=== PATIENT | female | born 1965 | race Caucasian/White ===

== ENCOUNTER 2018-02-14 19:05 | Emergency (ER) | payer SELFPAY ==
[2018-02-14 19:13] VITALS: BP 163/102
--- NOTE | 2018-02-14 19:33 | ED Physician Documentation ---
General Adult - HISTORIAN Historian: patient - HPI Stated Complaint: Foot lac Chief Complaint: General Adult Further Comments: yes (52 year old female patient presents with complaint of laceration to left 5th toe. Stepped on a broken dish.) - ROS CONST: no problems EYES/ENT: none CVS/RESP: none GI/: none MS/SKIN/LYMPH: none NEURO/PSYCH: denies: headache, fainting, dizziness, tingling, numbness, difficulty walking, difficulty with speech, anxiety, depression, other - PAST HX Past History: hypertension, other (cardiomyopathy) Other History: diabetes Type 2 Surgeries/Procedures: cholecystectomy, hysterectomy, other (appendectomy; hemorrhoidectomy) Immunizations: tetanus (>5 years) Allergies/Adverse Reactions: Allergies Allergy/AdvReac Type Severity Reaction Status Date / Time codeine Allergy Verified 02/14/18 19:13 gabapentin Allergy Verified 02/14/18 19:13 oxycodone [From OxyContin] Allergy Verified 02/14/18 19:13 Home Medications: Ambulatory Orders Medication Instructions Recorded Citalopram Hydrobromide 1 tab PO DAILY 02/14/18 [Citalopram HBr] DULoxetine HCL [Cymbalta] 1 tab PO BID 02/14/18 Hydroxyzine HCl [Atarax] 1 tab PO TID PRN 02/14/18 Lisinopril [Prinivil] 1 tab PO DAILY 02/14/18 Metoprolol Succinate [Toprol Xl] 1 tab PO DAILY 02/14/18 - SOCIAL HX Smoking History: cigarettes - FAMILY HX Family History: No - VITAL SIGNS Vital Signs: Vital Signs Temp Pulse Resp BP Pulse Ox 96.4 F L 91 H 17 163/102 98 02/14/18 19:09 02/14/18 19:09 02/14/18 19:09 02/14/18 19:09 02/14/18 19:09 - REVIEWED ASSESSMENTS Nursing Assessment Reviewed: Yes Vitals Reviewed: Yes Progress - Progress Progress: Wound cleaned by nursing. Steri strip applied Patient offered Tetanus shot - refused. Risk and benefits explained. General Adult Physical Exam - PHYSICAL EXAM GENERAL APPEARANCE: mild distress EENT: eye inspection normal RESPIRATORY: no resp distress SKIN: warm/dry, normal color, other (.5 cm abrasion to right lateral 5th toe) EXTREMITIES: non-tender, normal range of motion, no evidence of injury, no edema , J, [employer] NEURO: oriented X3 Discharge Clincal Impression: Abrasion of fifth toe, right Qualifiers: Encounter type: initial encounter Qualified Code(s): S90.414A - Abrasion, right lesser toe(s), initial encounter Condition: Stable Disposition: 01 HOME, SELF-CARE Decision to Admit: NO Decision Time: 19:33
== END 2018-02-14 19:31 | disposition home or self-care (01) ==
LOC: ED 19:05
DX: S90.414A Abrasion, right lesser toe(s), initial encounter (principal); X58.XXXA Exposure to other specified factors, initial encounter; Y92.9 Unspecified place or not applicable; Y93.9 Activity, unspecified; Y99.9 Unspecified external cause status
CPT/HCPCS: 99283

== ENCOUNTER 2018-03-19 20:32 | Emergency (ER) | payer SELFPAY ==
--- NOTE | 2018-03-19 20:54 | ED Physician Documentation ---
General Adult - HISTORIAN Historian: patient - HPI Stated Complaint: abd pain Chief Complaint: General Adult Onset: days ago (2 weeks) Timing: still present Severity: moderate Further Comments: yes (Pt is a 52 yo female with L-sided abd pain and bruising, and c/o n/v/diarrhea. No blood in diarrhea. Pt has had these sx off and on for weeks. 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.) - ROS CONST: no problems EYES/ENT: none CVS/RESP: none GI/: abdominal pain, vomiting, nausea, diarrhea MS/SKIN/LYMPH: other (ecchymosis L flank) - PAST HX Past History: other (anxiety, DM, HTN) Surgeries/Procedures: cholecystectomy, hysterectomy, other (Hernia, Tonsillectomy, ortho surg.) Allergies/Adverse Reactions: Allergies Allergy/AdvReac Type Severity Reaction Status Date / Time codeine Allergy Verified 03/19/18 20:57 gabapentin Allergy Verified 03/19/18 20:57 oxycodone [From OxyContin] Allergy Verified 03/19/18 20:57 Home Medications: Ambulatory Orders Medication Instructions Recorded Citalopram Hydrobromide 1 tab PO DAILY 02/14/18 [Citalopram HBr] DULoxetine HCL [Cymbalta] 1 tab PO BID 02/14/18 Hydroxyzine HCl [Atarax] 1 tab PO TID PRN 02/14/18 Lisinopril [Prinivil] 1 tab PO DAILY 02/14/18 Metoprolol Succinate [Toprol Xl] 1 tab PO DAILY 02/14/18 - SOCIAL HX Smoking History: non-smoker Alcohol Use: heavy (wine) - FAMILY HX Family History: No - VITAL SIGNS Vital Signs: Vital Signs Temp Pulse Resp BP Pulse Ox 163/102 02/14/18 19:31 - REVIEWED ASSESSMENTS Nursing Assessment Reviewed: Yes Vitals Reviewed: Yes Progress - Progress Progress: NS 1 L IVF Zofran [address] abd/pelvis: The lung bases are clear. The liver and spleen are normal. The gallbladder has been removed. Adrenal glands pancreas and mesentery are within normal limits. Minimal aortic calcification is present. There is a right extrarenal pelvis. The uterus has been removed. Numerous vascular calcifications are present in the pelvis. There sigmoid diverticulosis and left colon diverticulosis. A surgical clip is present anterior to the liver. The appendix is within normal limits. There is no inguinal mass. Minimal changes of lumbar spondylosis are present IMPRESSION: Cholecystectomy. Diverticulosis. Minimal vascular calcifications. Lumbar spondylosis. U/A - 1+ leukoesterase; trace blood. Rx Cipro 500 mg. Take one every 12 hrs for 5 days. General Adult Physical Exam - PHYSICAL EXAM GENERAL APPEARANCE: moderate distress EENT: pharynx normal NECK: normal inspection, supple RESPIRATORY: no resp distress, chest non-tender, breath sounds normal CVS: reg rate & rhythm, heart sounds normal ABDOMEN: soft, normal bowel sounds, tenderness (L flank, with ecchymosis, L flank) BACK: normal inspection, no CVA tenderness SKIN: warm/dry, other (ecchymosis L flank) EXTREMITIES: non-tender, normal range of motion, no evidence of injury, no edema NEURO: oriented X3, motor nml, sensation nml Discharge Clincal Impression: UTI, nausea/vomiting/diarrhea Referrals: Primary Doctor,No [Primary Care Provider] - Condition: Stable Disposition: 01 HOME, SELF-CARE Decision to Admit: NO Decision Time: 00:08
[2018-03-19] MEDS ORDERED: ONDANSETRON HCL/PF 4 MG/ 2ML VIAL IVP ONE (20:55)
[2018-03-19] MEDS ORDERED: 0.9 % SODIUM CHLORIDE 1,000 ML IV SCH (21:00)
[2018-03-19] MEDS ORDERED: 0.9 % SODIUM CHLORIDE 1,000 ML IV ONE (22:04)
[2018-03-19 22:10] LABS: BASOPHILS % 0.8 (0.0-1.5); EOSINOPHILS % 1.7 % (0.0-6.8); MEAN CORPUSCULAR HEMOGLOBIN 31.4 pg (28.0-34.0); MONOCYTES % 6.1 % (0.0-11.0); NEUTROPHILS # 6.5 # k/uL (1.4-7.7)
[2018-03-19 22:21] LABS: eGFR (African) > 60; eGFR (Non-African) > 60
[2018-03-20] MEDS ORDERED: CIPROFLOXACIN HCL 500 MG TABLET PO ONE (00:06)
[2018-03-20 00:28] VITALS: BP 129/72
--- NOTE | 2018-03-20 05:57 | Diagnostic Imaging Report ---
IVETTE CARNES [facility] [address] [facility] [address] [place], [place]. [address] Report Submission Date: Mar 19, 2018 11:56:57 PM CDT Patient Study Name: JACKELINE REYES Date: Mar 19, 2018 11:36:50 PM CDT Modality Type: CT\SR Gender: F Description: CT ABD PELVIS W/O CO : 63 Institution: [facility] Physician: IVETTE CARNES CT abdomen and pelvis without contrast Date of study: March 19, 2018 CLINICAL HISTORY: LEFT SIDED ABD PAIN, VOMITING (Hx) / ITS.REASON abd pain Note time : 03/20/2018 12:48:05 AM User : Justin Bertrand ABD PAIN (DICOM Hx) TECHNIQUE: 5 mm contiguous axial images of the abdomen and pelvis non contrast. FINDINGS: The lung bases are clear. The liver and spleen are normal. The gallbladder has been removed. Adrenal glands pancreas and mesentery are within normal limits. Minimal aortic calcification is present. There is a right extrarenal pelvis. The uterus has been removed. Numerous vascular calcifications are present in the pelvis. There sigmoid diverticulosis and left colon diverticulosis. A surgical clip is present anterior to the liver. The appendix is within normal limits. There is no inguinal mass. Minimal changes of lumbar spondylosis are present IMPRESSION: Cholecystectomy. Diverticulosis Minimal vascular calcifications Lumbar spondylosis Electronically signed on Mar 19, 2018 11:56:57 PM CDT by: Dalton Mukherjee [facility]ITALEn[facility]
[2018-03-20 06:36] LABS: APPEARANCE,URINE CLOUDY (CLEAR); COLOR,URINE YELLOW (YELLOW); OCCULT BLOOD,URINE TRACE-INTACT (NEGATIVE); UROBILINOGEN URINE 0.2 Eu (0.2-1.0)
== END 2018-03-20 00:20 | disposition home or self-care (01) ==
LOC: ED 20:32
DX: N39.0 Urinary tract infection, site not specified (principal); R11.2 Nausea with vomiting, unspecified; R19.7 Diarrhea, unspecified
CPT/HCPCS: 74176; 80053; 81002; 83690; 85025; 87086; J2405; J7030; 96365; 96375; 99284; S1016

== ENCOUNTER 2018-05-12 15:37 | Emergency (ER) | payer OTHER ==
[2018-05-12 16:17] VITALS: BP 133/80
--- NOTE | 2018-05-12 16:44 | Diagnostic Imaging Report ---
DELORIS MARTINEZ [facility] [address] [facility] [address] [address] Report Submission Date: May 12, 2018 4:42:47 PM CDT Patient Study Name: JACKELINE REYES Date: May 12, 2018 4:18:08 PM CDT Modality Type: DX Gender: F Description: LOWER EXTREMITY : 63 Institution: [facility] Physician: DELORIS MARTINEZ Right 1st toe, 3 views History: Injury Findings: No fracture, dislocation or abnormal bone production or destruction is identified. Impression: Normal. Electronically signed on May 12, 2018 4:42:47 PM CDT by: Angel JESUS
--- NOTE | 2018-05-12 16:51 | ED Physician Documentation ---
Lower Extremity Injury - HISTORIAN Historian: patient - HPI Stated Complaint: Right foot injury Chief Complaint: Foot Injury Additional Information: Dropped heavy wooden mirror on toe at 1400. Stings and hurts up her leg almost to knee. No treatment attempted. - ROS CONST: no problems - PAST HX Past History: cardiac (enlarged heart, no symptoms) Allergies/Adverse Reactions: Allergies Allergy/AdvReac Type Severity Reaction Status Date / Time codeine Allergy Verified 05/12/18 16:12 gabapentin Allergy Verified 05/12/18 16:12 oxycodone [From OxyContin] Allergy Verified 05/12/18 16:12 Home Medications: Ambulatory Orders Medication Instructions Recorded DULoxetine HCL [Cymbalta] 1 tab PO BID 02/14/18 Hydroxyzine HCl [Atarax] 1 tab PO TID PRN 02/14/18 Lisinopril [Prinivil] 1 tab PO DAILY 02/14/18 Metoprolol Succinate [Toprol Xl] 1 tab PO DAILY 02/14/18 - SOCIAL HX Smoking History: non-smoker - FAMILY HX Family History: no significant history - VITAL SIGNS Vital Signs: Vital Signs Temp Pulse Resp BP Pulse Ox 98.2 F 74 19 133/80 97 05/12/18 15:40 05/12/18 15:40 05/12/18 15:40 05/12/18 15:40 05/12/18 15:40 - REVIEWED ASSESSMENTS Nursing Assessment Reviewed: Yes Vitals Reviewed: Yes Progress - Progress Progress: [place]. [address] Report Submission Date: May 12, 2018 4:42:47 PM CDT Patient Study Name: JACKELINE REYES Date: May 12, 2018 4:18:08 PM CDT Modality Type: DX Gender: F Description: LOWER EXTREMITY : 63 Institution: [facility] Physician: DELORIS MARTINEZ - ER Right 1st toe, 3 views History: Injury Findings: No fracture, dislocation or abnormal bone production or destruction is identified. Impression: Normal. Electronically signed on May 12, 2018 4:42:47 PM CDT by: Angel Ugarte ED Results Lab/Radiology - Orders Orders: ED Orders Category Date Time Status Vijay Tape Toes 1T Care 05/12/18 16:51 Active TOES 2 VIEWS OR MORE [RAD] Stat Exams 05/12/18 Completed Lower Extremities Injury Phy - Physical Exam General Appearance: alert, mild distress Hips: bilateral hip: no evidence of injury Legs: bilateral: no evidence of injury Knees: bilateral: no evidence of injury Ankle: bilateral: normal inspection, no evidence of injury Foot: bilateral foot: normal inspection, no evidence of injury (except L first toe with light blue ecchymosis 1/4 the area of the nail) Gait: antalgic gait Neuro/Vascular/Tendon: no vascular compromise (DP and PT 2+ jaden), motor nml, sensation nml Head/ENT: nml inspection Neck/Back: nml inspection Resp/CVS: no resp. distress Discharge Clincal Impression: Contusion Qualifiers: Encounter type: initial encounter Contusion area: toe Toe: great toe Damage to nail status: without damage Referrals: Primary Doctor,No [Primary Care Provider] - 2 Days Condition: Good Disposition: 01 HOME, SELF-CARE Decision to Admit: NO Decision Time: 16:58
== END 2018-05-12 17:00 | disposition home or self-care (01) ==
LOC: ED 15:37
DX: S90.111A Contusion of right great toe without damage to nail, initial encounter (principal); W23.1XXA Caught, crushed, jammed, or pinched between stationary objects, initial encounter; Y92.9 Unspecified place or not applicable; Y93.9 Activity, unspecified; Y99.9 Unspecified external cause status
CPT/HCPCS: 73660; 99282

== ENCOUNTER 2018-09-11 11:00 | Emergency (ER) | payer OTHER ==
[2018-09-11] MEDS ORDERED: ONDANSETRON HCL/PF 4 MG/ 2ML VIAL IVP ONE (11:16)
[2018-09-11 11:23] VITALS: BP 99/85
--- NOTE | 2018-09-11 11:26 | ED Physician Documentation ---
Nausea/Vomiting/Diarrhea - HISTORIAN Historian: patient - HPI Stated Complaint: Nausea, Emesis, Diarrhea Chief Complaint: Nausea,Vomiting,Diarrhea Additional Information: Patient presents to ED with a 3 day history of nausea/vomiting/diarrhea. She states she has been throwing up every 2 minutes and having watery diarrhea every 10 minutes for the past 3 days. She had a morphine pain injection in her back yesterday by pain management and that seemed make the nausea/vomiting worse. She denies fever, chills or abdominal pain. Onset: hours, days ago (3) Duration: constant Timing: gradual onset Context: denies: out of country travel, bad food - Associated Symptoms Vomiting: frequent Diarrhea: copious, watery Abdominal Pain: none - ROS CONST: none CVS/RESP: denies: chest pain, shortness of breath GI/: none EYES/ENT: none MS/SKIN/LYMPH: denies: leg swelling, ankle swelling NEURO/PSYCH: denies: headache - PAST HX Past History: none Other History: CHF Allergies/Adverse Reactions: Allergies Allergy/AdvReac Type Severity Reaction Status Date / Time codeine Allergy Verified 09/11/18 11:18 gabapentin Allergy Verified 09/11/18 11:18 oxycodone [From OxyContin] Allergy Verified 09/11/18 11:18 Home Medications: Ambulatory Orders Medication Instructions Recorded Lisinopril [Prinivil] 1 tab PO DAILY 02/14/18 Metoprolol Succinate [Toprol Xl] 1 tab PO DAILY 02/14/18 Loperamide HCl [Imodium A-D] 2 mg PO QID #30 capsule 09/11/18 Ondansetron HCl Rapdis [Zofran Odt] 4 mg PO Q8 PRN #20 tab 09/11/18 - SOCIAL HX Smoking History: non-smoker Alcohol Use: none Drug Use: none - FAMILY HX Family History: none - VITAL SIGNS Vital Signs: Vital Signs Temp Pulse Resp BP Pulse Ox 98.0 F 75 15 99/85 98 09/11/18 11:10 09/11/18 11:10 09/11/18 11:10 09/11/18 11:10 09/11/18 11:10 - REVIEWED ASSESSMENTS Nursing Assessment Reviewed: Yes Vitals Reviewed: Yes ED Results Lab/Radiology - Lab Results Lab Results: Lab Results 09/11/18 09/11/18 09/11/18 Unknown Unknown Unknown WBC 11.50 K/ul K/ul (4.00-12.00) RBC 4.56 M/ul M/ul (3.90-5.20) Hgb 13.6 g/dL g/dL (12.0-16.0) Hct 41.1 % % (34.5-46.5) MCV 90.0 fl fl (80.0-100.0) MCH 29.9 pg pg (28.0-34.0) MCHC 33.2 g/dL g/dL (30.0-36.0) RDW 12.8 % % (11.3-14.3) Plt Count 296 K/mm3 K/mm3 (130-400) Neut % (Auto) 67.0 % % (39.0-79.0) Lymph % (Auto) 23.0 % % (16.0-50.0) [place] % (Auto) 8.3 % % (0.0-11.0) Eos % (Auto) 1.2 % % (0.0-6.8) Baso % (Auto) 0.5 (0.0-1.5) Neut # (Auto) 7.7 # k/uL # k/uL (1.4-7.7) Lymph # (Auto) 2.7 # k/uL # k/uL (0.6-4.0) [place] # (Auto) 1.0 # k/uL H # k/uL (0.0-0.9) Eos # (Auto) 0.1 # k/uL # k/uL (0.0-0.6) Baso # (Auto) 0.1 # k/uL # k/uL (0.0-0.5) Sodium 141 mmol/L mmol/L (136-145) Potassium 3.3 mmol/L L mmol/L (3.5-5.1) Chloride 102 mmol/L mmol/L (98-107) Carbon Dioxide 30 mmol/L mmol/L (22-30) BUN 23 mg/dL H mg/dL (7-17) Creatinine 1.30 mg/dL H mg/dL (0.52-1.04) Estimated Creat Clear 88 Est GFR ( Amer) > 60 (60 - ) Est GFR (Non-Af Amer) > 60 (60 - ) Glucose 108 mg/dL H mg/dL (74-106) Calcium 9.8 mg/dL mg/dL (8.4-10.2) Total Bilirubin 0.4 mg/dL mg/dL (0.2-1.3) AST 45 U/L U/L (15-46) ALT 27 U/L U/L (13-69) Alkaline Phosphatase 80 U/L U/L (38-126) NT-Pro-B Natriuret Pep 441.6 pg/mL H pg/mL (15.0-125.0) Total Protein 7.2 g/dL g/dL (6.3-8.2) Albumin 4.5 g/dL g/dL (3.5-5.0) - Orders Orders: ED Orders Category Date Time Status Place IV Lock 1T Care 09/11/18 11:16 Active CBC/PLATELET/DIFF Routine Lab 09/11/18 Completed CMP Routine Lab 09/11/18 Completed NT-proBNP Stat Lab 09/11/18 Completed 0.9 % Sodium Chloride [Normal Saline] 1,000 ml Med 09/11/18 12:17 Active IV Q1H Ondansetron HCl/Pf [Zofran 4 mg/2 ml] Med 09/11/18 11:16 Discontinued 4 mg IVP NOW ONE Nausea Physical Exam - EXAM General Appearance: no acute distress, alert EENT: JUDY Neck: supple Respiratory: no resp distress, chest non-tender, breath sounds normal CVS: reg rate & rhythm Abdomen: non-tender. No: tenderness, guarding Back: non-tender, painless ROM Skin: warm/dry Extremities: non-tender, no edema Neuro/Psych: oriented X3, motor nml Discharge Clincal Impression: Gastroenteritis Prescriptions: Loperamide HCl [Imodium A-D] 2 mg PO QID #30 capsule Ondansetron HCl Rapdis [Zofran Odt] 4 mg PO Q8 PRN #20 tab PRN Reason: nausea/vomiting Referrals: Primary Doctor,No [Primary Care Provider] - 2 Days Additional Instructions: 1. Tylenol and/or ibuprofen as needed for pain/fever 2. Imodium and Zofran as needed for diarrhea and nausea/vomiting 3. Drink plenty of fluids to maintain proper hydration 4. Follow up with PCP within 1 week. 5. Return to ED for new or worsening symptoms. Condition: Stable Disposition: 01 HOME, SELF-CARE Decision to Admit: NO Date of Decison to Admit: 09/11/18 Decision Time: 13:03
[2018-09-11] MEDS ORDERED: 0.9 % SODIUM CHLORIDE 1,000 ML IV ONE (12:17)
[2018-09-11 12:21] LABS: MEAN CORPUSCULAR HEMOGLOBIN 29.9 pg (28.0-34.0)
[2018-09-11 12:22] LABS: BASOPHILS % 0.5 (0.0-1.5); EOSINOPHILS % 1.2 % (0.0-6.8); MONOCYTES % 8.3 % (0.0-11.0); NEUTROPHILS # 7.7 # k/uL (1.4-7.7)
[2018-09-11 12:50] LABS: eGFR (Non-African) > 60
== END 2018-09-11 13:15 | disposition home or self-care (01) ==
LOC: ED 11:00
DX: K52.9 Noninfective gastroenteritis and colitis, unspecified (principal)
CPT/HCPCS: 36415; 80053; 83880; 85025; 96374; 99283; 99284; J2405; J7030; S1016

== ENCOUNTER 2018-10-13 21:18 | Emergency (ER) | payer OTHER ==
--- NOTE | 2018-10-13 21:25 | ED Physician Documentation ---
General Adult - HISTORIAN Historian: patient - HPI Stated Complaint: nasuea and a feeling like her pain pump is shocking her Chief Complaint: Nausea,Vomiting,Diarrhea Onset: days ago (2) Timing: still present, better Severity: mild Further Comments: yes (She states that she had a pain pump placed with an incision on her right mid abdomen. She reports that she had a feeling and then some nasuea. She is not sure who her physician or who or what pain med or type of med is in the pump. She has no other complaints. After discussion she states her complaint is nausea. She denies any other complaint) Last known Well Code/Unknown Code: Unknown - ROS CONST: no problems EYES/ENT: none CVS/RESP: none GI/: vomiting, nausea MS/SKIN/LYMPH: none NEURO/PSYCH: denies: headache, fainting, dizziness - PAST HX Past History: hypertension Surgeries/Procedures: cholecystectomy, hysterectomy, other Immunizations: UTD Allergies/Adverse Reactions: Allergies Allergy/AdvReac Type Severity Reaction Status Date / Time codeine Allergy Verified 10/13/18 22:08 gabapentin Allergy Verified 10/13/18 22:08 oxycodone [From OxyContin] Allergy Verified 10/13/18 22:08 Home Medications: Ambulatory Orders Medication Instructions Recorded Lisinopril [Prinivil] 1 tab PO DAILY 02/14/18 Ondansetron HCl Rapdis [Zofran Odt] 4 mg PO Q8 PRN #20 tab 09/11/18 Atorvastatin Calcium 20 mg PO DAILY 10/13/18 Metoprolol Succinate 50 mg PO DAILY 10/13/18 - SOCIAL HX Smoking History: non-smoker Alcohol Use: none Drug Use: none - FAMILY HX Family History: No - VITAL SIGNS Vital Signs: Vital Signs Temp Pulse Resp BP Pulse Ox 99/85 09/11/18 13:15 - REVIEWED ASSESSMENTS Nursing Assessment Reviewed: Yes Vitals Reviewed: Yes Progress - Progress Progress: 2134: she is refusing a IV or fluids DG General Adult Physical Exam - PHYSICAL EXAM GENERAL APPEARANCE: no distress EENT: eye inspection normal, no signs of dehydration NECK: normal inspection RESPIRATORY: no resp distress, chest non-tender, breath sounds normal CVS: reg rate & rhythm, heart sounds normal, equal pulses ABDOMEN: soft, normal bowel sounds, no distension, non-tender, other (incision on right upper abdomen approx 12 manny intact. BS +) BACK: normal inspection, no CVA tenderness SKIN: warm/dry, normal color EXTREMITIES: non-tender, normal range of motion, no evidence of injury, no edema NEURO: oriented X3 Discharge Clincal Impression: Nausea Referrals: Primary Doctor,No [REFERRING] - 2 Days Comments: 1. Zofran 4 mg ODT take 1 by mouth every 8 hours as needed for nausea 2. BLAND foods 3. FOLLOW UP WITH PCP in 2-4 days 4. Return to ER for any concerns Condition: Stable Disposition: 01 HOME, SELF-CARE Decision to Admit: NO Date of Decison to Admit: 10/13/18 Decision Time: 22:00
[2018-10-13] MEDS ORDERED: ONDANSETRON HCL 4 MG TAB.RAPDIS PO ONE (21:30)
[2018-10-13 21:47] VITALS: BP 129/64
== END 2018-10-13 22:00 | disposition home or self-care (01) ==
LOC: ED 21:18
DX: R11.0 Nausea (principal)
CPT/HCPCS: 99282

== ENCOUNTER 2019-04-25 21:12 | Emergency (ER) | payer OTHER ==
--- NOTE | 2019-04-25 21:21 | ED Physician Documentation ---
Chest Pain - HISTORIAN Historian: patient - HPI Stated Complaint: chest pain about one hour ago Chief Complaint: Chest Pain Onset: hours (1) Timing: sudden onset Duration: constant Last known Well Date: 04/25/19 Last Known Well Time: 20:00 Context: rest Severity: moderate Quality: tightness, aching, sharp Chest Pain Radiation: arms (left arm (which she has chronic pain with and a morphine pump) ) Chest Pain Signs/Symptoms: dyspnea Worsened By: nothing Relieved By: nothing - ROS CONST: none MS/LYMPH: none GI/: none EYES/ENT: none SKIN/ENDO: none NEURO/PSYCH: none - PAST HX OH risk factors: hypertension, cardiac disease DVT/PE Risk Factors: none TAD/AAA risk factors: none Neuro deficit: none GI disease: none Lung disease: none Surgeries/Procedures: none Immunizations: UTD Allergies/Adverse Reactions: Allergies Allergy/AdvReac Type Severity Reaction Status Date / Time oxycodone [From OxyContin] Allergy Severe SWELLS UP Verified 04/25/19 21:48 codeine Allergy Verified 04/25/19 21:48 gabapentin Allergy Verified 04/25/19 21:48 Home Medications: Ambulatory Orders Medication Instructions Recorded Lisinopril [Prinivil] 1 tab PO DAILY 02/14/18 Ondansetron HCl Rapdis [Zofran Odt] 4 mg PO Q8 PRN #20 tab 09/11/18 Atorvastatin Calcium 20 mg PO DAILY 10/13/18 Metoprolol Succinate 50 mg PO DAILY 10/13/18 Morphine Pain Pump 03/29/19 Metronidazole 500 mg PO Q8 #21 tablet 03/31/19 - SOCIAL HX Smoking History: non-smoker Alcohol Use: none Drug Use: none - FAMILY HX Family HX: none - VITAL SIGNS Vital Signs: Vital Signs Temp Pulse Resp BP Pulse Ox 111/53 03/31/19 13:45 - REVIEWED ASSESSMENTS Nursing Assessment Reviewed: Yes Vitals Reviewed: Yes ED Results Lab/Radiology - Orders Orders: ED Orders Category Date Time Status Continuous EKG monitoring Q1H Care 04/25/19 21:15 Active IV Started NOW Care 04/25/19 21:15 Active CHEST 1VIEW [RAD] Stat Exams 04/25/19 Ordered CBC/PLATELET/DIFF Stat Lab 04/25/19 21:15 Ordered CKMB Stat Lab 04/25/19 Ordered CMP Stat Lab 04/25/19 21:15 Ordered SERUM HCG Stat Lab 04/25/19 Ordered TROPONIN I Stat Lab 04/25/19 Ordered 0.9 % Sodium Chloride [Normal Saline] 1,000 ml Med 04/25/19 21:17 Active IV NOW Aspirin [Gus] Med 04/25/19 21:17 Discontinued 324 mg PO NOW ONE Oxygen Daily Oxygen 04/25/19 21:30 Ordered EKG WITH COMPARISON Stat Ther 04/25/19 Ordered Chest Pain Physical Exam - EXAM General Appearance: alert, moderate distress EENT: eye inspection normal, no signs of dehydration Neck: nml inspection Respiratory: no resp. distress, wheezes CVS: reg. rate & rhythm, no murmur, pulses equal, other (pain with palpation on Left upper chest ) Abdomen: soft, normal bowel sounds, no distension Skin: warm/dry, normal color Extremities: non-tender, normal range of motion Neuro: oriented X3 Discharge Clincal Impression: Chest pain Qualifiers: Chest pain type: unspecified Qualified Code(s): R07.9 - Chest pain, unspecified Referrals: Dallin Kapoor MD [Primary Care Provider] - 2 Days Comments: 1. Continue current meds 2. Follow up with PCP in 2 days 3. Return to ER for any increasing concerns Condition: Stable Disposition: 01 HOME, SELF-CARE Decision to Admit: NO Date of Decison to Admit: 04/25/19 Decision Time: 23:03
[2019-04-25] MEDS: IPRATROPIUM/ALBUTEROL SULFATE 3 ML AMPUL.NEB NEB ONE ×2 (21:43→21:46)
[2019-04-25] MEDS: 0.9 % SODIUM CHLORIDE 1,000 ML IV ONE (21:43)
[2019-04-25] MEDS: ASPIRIN 81 MG CHEW TAB PO ONE (21:43)
[2019-04-25 22:19] LABS: eGFR (Non-African) > 60
[2019-04-25 22:22] LABS: BASOPHILS % 0.7 % (0.0-1.5); NEUTROPHILS # 3.9 # k/uL (1.4-7.7)
[2019-04-25] MEDS: methylPREDNISolone SOD SUCC 125 MG/2 ML VIAL IVP ONE (22:45)
[2019-04-26 00:19] VITALS: BP 133/77
--- NOTE | 2019-04-26 10:07 | Diagnostic Imaging Report ---
CITLALY LEES [facility] [address] [facility] [address] [place], [place]. [address] Report Submission Date: Apr 25, 2019 9:52:36 PM CDT Patient Study Name: JACKELINE REYES Date: Apr 25, 2019 9:18:53 PM CDT Modality Type: DX Gender: F Description: CHEST 1VIEW : 63 Institution: [facility] Physician: CITLALY LEES Portable chest History: Chest pain Portable chest dated April 25, 2019 demonstrates borderline heart size. Pulmonary vascularity is normal. Lungs are clear. Impression: Borderline heart size. Otherwise, no active disease. Electronically signed on Apr 25, 2019 9:52:36 PM CDT by: Alyssia JESUS
== END 2019-04-25 23:20 | disposition home or self-care (01) ==
LOC: ED 21:12
DX: R07.9 Chest pain, unspecified (principal); R06.00 Dyspnea, unspecified
CPT/HCPCS: 71045; 80053; 82553; 84484; 84703; 85025; 93005; 94640; 96361; 96374; 99284; J2930; J7030; S1016

== ENCOUNTER 2019-05-04 04:46 | Emergency (ER) | payer OTHER ==
--- NOTE | 2019-05-04 05:23 | ED Physician Documentation ---
General Adult - HISTORIAN Historian: patient - HPI Stated Complaint: "I HAVE HAD NAUSEA/VOMITING FOR 3 DAYS" Chief Complaint: General Adult (N/V x 3 Days) Additional Information: Patient is a 54-year-old female who presents to the ER with c/o nausea and vomiting x 3 days. She states that she has not been able to keep anything down. Her PCP is aware and put her on Zofran but its not working. She last vomited prior to arrival. Doug any diarrhea. Onset: days ago Timing: still present Severity: moderate - ROS CONST: no problems EYES/ENT: none CVS/RESP: none GI/: vomiting, nausea MS/SKIN/LYMPH: back pain (chronic) NEURO/PSYCH: denies: headache, dizziness - PAST HX Past History: hypertension, other (HLD) Other History: diabetes Type 2 (controlled with diet) Surgeries/Procedures: cholecystectomy, hysterectomy, other (hernia, tumors removed, nerve stimulator, pain pump) Immunizations: UTD Allergies/Adverse Reactions: Allergies Allergy/AdvReac Type Severity Reaction Status Date / Time oxycodone [From OxyContin] Allergy Severe SWELLS UP Verified 05/04/19 05:04 codeine Allergy Verified 05/04/19 05:04 gabapentin Allergy Verified 05/04/19 05:04 Home Medications: Ambulatory Orders Medication Instructions Recorded Lisinopril [Prinivil] 1 tab PO DAILY 02/14/18 Ondansetron HCl Rapdis [Zofran Odt] 4 mg PO Q8 PRN #20 tab 09/11/18 Atorvastatin Calcium 20 mg PO DAILY 10/13/18 Metoprolol Succinate 50 mg PO DAILY 10/13/18 Promethazine HCl [Phenadoz] 25 mg RC Q6 PRN #10 supp.rect 05/04/19 - SOCIAL HX Smoking History: quit greater than 1 year Alcohol Use: none Drug Use: none - FAMILY HX Family History: No - VITAL SIGNS Vital Signs: Vital Signs Temp Pulse Resp BP Pulse Ox 98.1 F 86 16 170/97 98 05/04/19 04:50 05/04/19 04:50 05/04/19 04:50 05/04/19 04:50 05/04/19 04:50 - REVIEWED ASSESSMENTS Nursing Assessment Reviewed: Yes Vitals Reviewed: Yes ED Results Lab/Radiology - Orders Orders: ED Orders Category Date Time Status Place IV Lock 1T Care 05/04/19 05:14 Ordered CBC/PLATELET/DIFF Routine Lab 05/04/19 05:15 Ordered CMP Routine Lab 05/04/19 05:15 Ordered URINALYSIS Routine Lab 05/04/19 Ordered NORMAL SALINE @ 1000 MLS/HR ( 1000ml BOLUS) Med 05/04/19 05:15 Ordered 0.9 % Sodium Chloride [Normal Saline] 1,000 ml IV Q1H Ondansetron HCl/Pf [Zofran] Med 05/04/19 05:15 Once 4 mg IVP NOW ONE General Adult Physical Exam - PHYSICAL EXAM GENERAL APPEARANCE: mild distress EENT: eye inspection normal, ENT inspection normal, pharynx normal, no signs of dehydration, JUDY NECK: normal inspection, supple RESPIRATORY: breath sounds normal CVS: heart sounds normal ABDOMEN: soft, normal bowel sounds BACK: normal inspection SKIN: warm/dry, normal color EXTREMITIES: normal range of motion NEURO: oriented X3, CN's nml as tested, motor nml, sensation nml, cognition normal Discharge Clincal Impression: Nausea & vomiting Prescriptions: Promethazine HCl [Phenadoz] 25 mg RC Q6 PRN #10 supp.rect PRN Reason: Nausea and vomiting Referrals: Dallin Kapoor MD [Primary Care Provider] - 2 Days Additional Instructions: Take Phenergan as directed for nausea/vomiting Start with sips of water Advance diet as tolerated Follow up with PCP next week Condition: Good Disposition: 01 HOME, SELF-CARE Decision to Admit: NO Decision Time: 07:00
[2019-05-04] MEDS: 0.9 % SODIUM CHLORIDE 1,000 ML IV ONE (05:32)
[2019-05-04] MEDS: ONDANSETRON HCL/PF 4 MG/ 2ML VIAL IVP ONE (05:32)
[2019-05-04] MEDS ORDERED: PROMETHAZINE HCL 25 MG SUPP.RECT RC ONE (06:51)
[2019-05-04 06:55] LABS: eGFR (Non-African) > 60
[2019-05-04 07:01] LABS: SEGMENTED NEUTROPHILS % 60 % (39-79)
[2019-05-04 07:04] VITALS: BP 141/89
[2019-05-04 08:13] LABS: APPEARANCE,URINE CLEAR (CLEAR); COLOR,URINE YELLOW (YELLOW); OCCULT BLOOD,URINE NEGATIVE (NEGATIVE)
[2019-05-04 08:14] LABS: UROBILINOGEN URINE 0.2 Eu (0.2-1.0)
== END 2019-05-04 07:05 | disposition home or self-care (01) ==
LOC: ED 04:46
DX: R11.2 Nausea with vomiting, unspecified (principal)

== ENCOUNTER 2019-05-05 19:36 | Emergency (ER) | payer OTHER ==
[2019-05-05] MEDS: PROMETHAZINE HCL 25 MG/ML VIAL IM ONE (20:15)
[2019-05-05] MEDS ORDERED: PROMETHAZINE HCL 25 MG SUPP.RECT RC ONE (20:29)
--- NOTE | 2019-05-05 20:34 | ED Physician Documentation ---
Nausea/Vomiting/Diarrhea - HISTORIAN Historian: patient - HPI Chief Complaint: Nausea,Vomiting,Diarrhea Additional Information: Patient is a 54 year old female who presents to the ER with c/o nausea and vomiting; chronic. She was seen on 05/04/19 in the ER and treated; she states Zofran does not work; she was prescribed phenergan but pharmacy would not fill it due to "contraindications with other meds". No call received from pharmacy. Discussed importance of following up with PCP to get referral to GI. Onset: other (ongoing for sometiime) Duration: waxing, waning, gradual Timing: gradual onset, still present Context: denies: out of country travel, bad food Severity: mild - Associated Symptoms Vomiting: frequent, bilious Diarrhea: denies: mild Abdominal Pain: none - ROS CONST: none CVS/RESP: denies: shortness of breath, cough GI/: none EYES/ENT: none MS/SKIN/LYMPH: denies: swollen glands NEURO/PSYCH: none - PAST HX Past History: other (HLD) Other History: hypertension Surgeries/Procedures: cholecystectomy, hysterectomy Immunizations: UTD Allergies/Adverse Reactions: Allergies Allergy/AdvReac Type Severity Reaction Status Date / Time oxycodone [From OxyContin] Allergy Severe SWELLS UP Verified 05/05/19 21:09 codeine Allergy Verified 05/05/19 21:09 gabapentin Allergy Verified 05/05/19 21:09 Home Medications: Ambulatory Orders Medication Instructions Recorded Lisinopril [Prinivil] 1 tab PO DAILY 02/14/18 Ondansetron HCl Rapdis [Zofran Odt] 4 mg PO Q8 PRN #20 tab 09/11/18 Atorvastatin Calcium 20 mg PO DAILY 10/13/18 Metoprolol Succinate 50 mg PO DAILY 10/13/18 Promethazine HCl [Phenadoz] 25 mg RC Q6 PRN #10 supp.rect 05/04/19 - SOCIAL HX Smoking History: less than 1 pack/day Alcohol Use: none Drug Use: none - FAMILY HX Family History: none - VITAL SIGNS Vital Signs: Vital Signs Temp Pulse Resp BP Pulse Ox 99.1 F 99 H 18 137/100 94 05/05/19 19:37 05/05/19 19:37 05/05/19 19:37 05/05/19 19:37 05/05/19 19:37 - REVIEWED ASSESSMENTS Nursing Assessment Reviewed: Yes Vitals Reviewed: Yes Progress - Progress Progress: 22:45 patient potassium 2.7; she is unable to tolerate PO potassium; will have to start IV; will admit patient observation; she agrees with plan of care. ED Results Lab/Radiology - Orders Orders: ED Orders Category Date Time Status AMYLASE Routine Lab 05/05/19 21:24 Received CBC/PLATELET/DIFF Routine Lab 05/05/19 21:24 Received CMP Routine Lab 05/05/19 21:24 Received LIPASE Stat Lab 05/05/19 21:24 Received Potassium Chloride 40 Meq/Ns [KCL 40 MEQ in NS 1000 ML] Med 05/05/19 22:30 Ordered 1,000 ml IV Q8H Potassium Chloride [Klor-Con M20] Med 05/05/19 22:00 Discontinued 40 meq PO NOW ONE Promethazine HCl [Phenergan] Med 05/05/19 20:08 Discontinued 25 mg IM NOW ONE Promethazine HCl [Phenergan] Med 05/05/19 20:29 Discontinued 50 mg RC TAKE HOME ONE Nausea Physical Exam - EXAM General Appearance: moderate distress EENT: eye inspection normal, ENT inspection normal, pharynx normal, dry mucous membranes Neck: normal inspection, supple Respiratory: breath sounds normal CVS: heart sounds normal Abdomen: non-tender Back: non-tender, painless ROM Skin: warm/dry, normal color Extremities: non-tender, normal range of motion, no evidence of injury Neuro/Psych: oriented X3, CN's nml as tested, motor nml, sensation nml, mood/affect nml, cognition normal Discharge Clincal Impression: Nausea & vomiting, Hypokalemia, gastrointestinal losses, Dehydration Referrals: Dallin Kapoor MD [Primary Care Provider] - 2 Days Additional Instructions: Will admit observation for IV hydration with potassium and IV antiemetics Condition: Fair Decision to Admit: [id number] Decision Time: 23:14
[2019-05-05 21:20] VITALS: BP 137/100
[2019-05-05] MEDS ORDERED: POTASSIUM CHLORIDE 40 MEQ/NS 1,000 ML IV SCH (22:30)
[2019-05-05] MEDS: POTASSIUM CHLORIDE 20 MEQ TABLET.ER PO ONE (22:58)
[2019-05-05] MEDS: POTASSIUM CHLORIDE 40 MEQ/NS 1,000 ML IV ONE (22:58)
[2019-05-06 06:37] LABS: NEUTROPHILS # 6.5 # k/uL (1.4-7.7)
[2019-05-06 06:38] LABS: eGFR (Non-African) > 60
== END 2019-05-05 23:15 ==
LOC: ED 19:36
DX: E87.6 Hypokalemia (principal); R11.2 Nausea with vomiting, unspecified; K92.9 Disease of digestive system, unspecified; E86.0 Dehydration
CPT/HCPCS: 80053; 82150; 83690; 85025; 96372; 96374; 99282; 99283; J2550; J3480; S1016

== ENCOUNTER 2019-05-05 23:15 | Observation (INO) | payer OTHER ==
[2019-05-05 23:44] VITALS: BMI 41.9
[2019-05-06] MEDS: ONDANSETRON HCL/PF 4 MG/ 2ML VIAL IVP PRN (02:18)
[2019-05-06] MEDS: 0.9 % SODIUM CHLORIDE 1,000 ML IV SCH (05:50)
[2019-05-06] MEDS: PROMETHAZINE HCL 25 MG/ML VIAL IM PRN (07:55)
[2019-05-06 09:06] LABS: BASOPHILS % 0.7 % (0.0-1.5); NEUTROPHILS # 5.1 # k/uL (1.4-7.7)
[2019-05-06 09:19] LABS: eGFR (Non-African) > 60
[2019-05-06] MEDS: ACETAMINOPHEN 1,000 MG/100 ML INJ IV PRN (11:05)
--- NOTE | 2019-05-06 12:02 | Discharge Summary ---
Discharge Summary - Discharge Sumary Admission Date: 05/05/19 Discharge Date: 05/06/19 Discharge To: Home History of Present Illness: Patient is a 54 year old female who presented to the ER with c/o nausea and vomiting; chronic. She was seen on 05/04/19 in the ER and treated; she states Zofran does not work; she was prescribed phenergan but pharmacy would not fill it due to "contraindications with other meds". No call received from pharmacy. D iscussed importance of following up with PCP to get referral to GI. Condition at Discharge: Stable Home Medications: Ambulatory Orders Medication Instructions Recorded Lisinopril [Prinivil] 1 tab PO DAILY 02/14/18 Ondansetron HCl Rapdis [Zofran Odt] 4 mg PO Q8 PRN #20 tab 09/11/18 Atorvastatin Calcium 20 mg PO DAILY 10/13/18 Metoprolol Succinate 50 mg PO DAILY 10/13/18 Omeprazole 20 mg PO DAILY #37 capsule.dr 05/06/19 Potassium Chloride [Klor-Con] 20 meq PO DAILY #7 packet 05/06/19 Promethazine HCl [Phenadoz] 25 mg RC Q6 PRN #7 supp.rect 05/06/19 Scopolamine [Transderm-Scop] 1 each TD Q3D #6 patch.td.3 05/06/19 Consultations this Visit: None Procedures this Visit: None Allergies/Adverse Reactions: Allergies Allergy/AdvReac Type Severity Reaction Status Date / Time oxycodone [From OxyContin] Allergy Severe SWELLS UP Verified 05/05/19 21:09 codeine Allergy Verified 05/05/19 21:09 gabapentin Allergy Verified 05/05/19 21:09 Discharge Summary: Patient has had multiple visits to the ER for n/v; she is to follow up with PCP this week to discuss plan for n/v. Patient recently had morphine pump removed d/t nausea and vomiting. Patient was found to have Hypokalemia in the ER and treated with IV NS with 40meq of KCL and she will be started on oral K+ for 7 days. She may need to discuss with PCP GI referral. Hospital Course: IV fluids, IV Zofran, IM phenergan, IV NS with 40meq KCL, - Final Diagnosis (1) Hypokalemia, gastrointestinal losses Problems: Improving; will continue on oral potassium for 7 days (she will follow up with PCP) Right or Left: Right (2) Nausea & vomiting Problems: Still having some nausea but improving. Will start patient on Omeprazole Right or Left: Right
[2019-05-06 13:51] VITALS: BP 158/88
== END 2019-05-06 13:20 | disposition home or self-care (01) ==
LOC: SOUTH 23:15
PROVIDERS: ADMIT Nurse Practitioner Family; ATTEND Nurse Practitioner Family
DX: E87.6 Hypokalemia (principal); K92.2 Gastrointestinal hemorrhage, unspecified
CPT/HCPCS: 36415; 80053; 85025; 99218; 99282; 99283; J2405; J2550; G0378; G0379; J7030

== ENCOUNTER 2019-05-11 16:36 | Emergency (ER) | payer OTHER ==
--- NOTE | 2019-05-11 16:41 | ED Physician Documentation ---
General Adult - HISTORIAN Historian: patient - HPI Stated Complaint: weakness and malaise Chief Complaint: General Adult Additional Information: Patient presents to ED with a 2-3 day history of weakness and malaise. Patient states her morphine pump was removed on May 01 several day later she started feeling weak and has no energy to do anything. She reports no appetite and when she does eat she vomits it back up. She currently has on a scopalamine patch. She denies fever, chills, chest pain, shortness of breath, abdominal pain or syncope. Onset: days ago (7) Timing: still present Severity: moderate - ROS CONST: denies: fever EYES/ENT: denies: problems with vision CVS/RESP: denies: chest pain, shortness of breath GI/: denies: abdominal pain, vomiting, nausea MS/SKIN/LYMPH: none NEURO/PSYCH: denies: headache, dizziness - PAST HX Past History: other (chronic back pain) Other History: none Surgeries/Procedures: none Allergies/Adverse Reactions: Allergies Allergy/AdvReac Type Severity Reaction Status Date / Time oxycodone [From OxyContin] Allergy Severe SWELLS UP Verified 05/11/19 16:47 codeine Allergy Verified 05/11/19 16:47 gabapentin Allergy Verified 05/11/19 16:47 Home Medications: Ambulatory Orders Medication Instructions Recorded Lisinopril [Prinivil] 1 tab PO DAILY 02/14/18 Ondansetron HCl Rapdis [Zofran Odt] 4 mg PO Q8 PRN #20 tab 09/11/18 Atorvastatin Calcium 20 mg PO DAILY 10/13/18 Metoprolol Succinate 50 mg PO DAILY 10/13/18 Omeprazole 20 mg PO DAILY #37 capsule.dr 05/06/19 Potassium Chloride [Klor-Con] 20 meq PO DAILY #7 packet 05/06/19 Promethazine HCl [Phenadoz] 25 mg RC Q6 PRN #7 supp.rect 05/06/19 Scopolamine [Transderm-Scop] 1 each TD Q3D #6 patch.td.3 05/06/19 - SOCIAL HX Smoking History: non-smoker Alcohol Use: none Drug Use: none - FAMILY HX Family History: No - VITAL SIGNS Vital Signs: Vital Signs Temp Pulse Resp BP Pulse Ox 158/88 05/06/19 12:01 - REVIEWED ASSESSMENTS Nursing Assessment Reviewed: Yes Vitals Reviewed: Yes Progress - Progress Progress: 1845 Discussed admission with patient due to hypokalemia. Patient agrees with admission. - EKG/XRAY/CT Comments: 190 Sinus tachy 100 bpm T wave depression V1-V2, T wave inversion V3-V6 General Adult Physical Exam - PHYSICAL EXAM GENERAL APPEARANCE: no distress EENT: JUDY NECK: No: lymphadenopathy RESPIRATORY: no resp distress, chest non-tender, breath sounds normal CVS: reg rate & rhythm, heart sounds normal ABDOMEN: soft, normal bowel sounds, non-tender BACK: normal inspection SKIN: warm/dry, normal color EXTREMITIES: non-tender, no edema NEURO: oriented X3, depressed mood/affect Discharge Clincal Impression: Hypokalemia, gastrointestinal losses, Dehydration Nausea & vomiting Qualifiers: Vomiting type: cyclical vomiting Vomiting Intractability: non-intractable Qualified Code(s): G43.A0 - Cyclical vomiting, not intractable Referrals: Dallin Kapoor MD [Primary Care Provider] - 2 Days Comments: Will admit observation for hypokalemia, nausea/vomiting and dehydration. Condition: Fair Decision to Admit: [id number] Date of Decison to Admit: 05/11/19 Decision Time: 18:46
[2019-05-11 17:50] LABS: SEGMENTED NEUTROPHILS % 50 % (39-79)
[2019-05-11] MEDS: 0.9 % SODIUM CHLORIDE 1,000 ML IV ONE (18:27)
[2019-05-11] MEDS: POTASSIUM CHLORIDE 20 MEQ TABLET.ER PO ONE (18:58)
[2019-05-11 19:02] VITALS: BP 132/86
== END 2019-05-11 19:15 ==
LOC: ED 16:36
DX: E87.6 Hypokalemia (principal); K92.2 Gastrointestinal hemorrhage, unspecified; E86.0 Dehydration; G43.A0 Cyclical vomiting, in migraine, not intractable
CPT/HCPCS: 80053; 85025; 93005; 96360; 99283; 99284; A9270; J7030; S1016

== ENCOUNTER 2019-08-03 11:43 | Emergency (ER) | payer OTHER ==
[2019-08-03] MEDS ORDERED: POTASSIUM CHLORIDE 20 MEQ/NS 1,000 ML IV ONE (12:09)
--- NOTE | 2019-08-03 12:24 | ED Physician Documentation ---
General Adult - HISTORIAN Historian: patient - HPI Stated Complaint: rectal bleeding Chief Complaint: General Adult Additional Information: 54 year old female presents with c/o rectal bleeding this morning; she had gastric bypass surgery on 07/28/[address] [facility] [address] Diaz. She states that she has already been to the [facility] ER for abdominal pain and nausea; educated patient that these symptoms are common after bariatric surgery; encouraged her to keep sipping her protein drinks and water as instructed by her bariatric team. Mucous membranes appear dry; will get labs and give fluids. 25th Onset: minutes Timing: better Severity: mild Modifying Factors: Bariatric surgery (Gastric Bypass) - ROS CONST: no problems EYES/ENT: none CVS/RESP: none GI/: abdominal pain, nausea MS/SKIN/LYMPH: none NEURO/PSYCH: denies: headache, dizziness - PAST HX Past History: hypertension, other (hx of narcotic abuse) Other History: diabetes Type 2 (diet controlled), other (HLD) Surgeries/Procedures: cholecystectomy, hysterectomy, other (Gastric bypass 07/28/19) Immunizations: UTD Allergies/Adverse Reactions: Allergies Allergy/AdvReac Type Severity Reaction Status Date / Time oxycodone [From OxyContin] Allergy Severe SWELLS UP Verified 08/03/19 11:58 codeine Allergy Verified 08/03/19 11:58 gabapentin Allergy Verified 08/03/19 11:58 Home Medications: Ambulatory Orders Medication Instructions Recorded Lisinopril [Prinivil] 1 tab PO DAILY 02/14/18 Ondansetron HCl Rapdis [Zofran Odt] 4 mg PO Q8 PRN #20 tab 09/11/18 Atorvastatin Calcium 20 mg PO DAILY 10/13/18 Metoprolol Succinate 50 mg PO DAILY 10/13/18 Omeprazole 20 mg PO DAILY #37 capsule. 05/06/19 Potassium Chloride [Klor-Con] 20 meq PO DAILY #7 packet 05/06/19 Promethazine HCl [Phenadoz] 25 mg RC Q6 PRN #7 supp.rect 05/06/19 Scopolamine [Transderm-Scop] 1 each TD Q3D #6 patch.td.3 05/06/19 Potassium Chloride [Klor-Con 10] 10 meq PO DAILY #4 tablet.er 05/12/19 - SOCIAL HX Smoking History: less than 1 pack/day Alcohol Use: none Drug Use: none - FAMILY HX Family History: No - VITAL SIGNS Vital Signs: Vital Signs Temp Pulse Resp BP Pulse Ox 97.7 F 91 H 19 143/91 95 08/03/19 11:58 08/03/19 11:58 08/03/19 11:58 08/03/19 11:58 08/03/19 11:58 - REVIEWED ASSESSMENTS Nursing Assessment Reviewed: Yes Vitals Reviewed: Yes Procedures Progress: rectal checked shows external hemorrhoids. No blood noted. Progress - Progress Progress: 15:00 patient feeling much better after IVF's ED Results Lab/Radiology - Orders Orders: ED Orders Category Date Time Status CBC/PLATELET/DIFF Routine Lab 08/03/19 Ordered CMP Routine Lab 08/03/19 Ordered Potassium Chloride 20 Meq/Ns [KCl 20 Meq/Ns 1000 ml] 1, Med 08/03/19 12:09 Ordered 000 ml IV NOW General Adult Physical Exam - PHYSICAL EXAM GENERAL APPEARANCE: mild distress EENT: eye inspection normal, ENT inspection normal, pharynx normal, dry mucous membranes NECK: normal inspection, supple RESPIRATORY: breath sounds normal CVS: heart sounds normal ABDOMEN: soft, normal bowel sounds, other (incisions are without redness, erythema, or drainage; skin adhesive intact) RECTAL: normal rectal tone, heme negative stool, hemorrhoids BACK: normal inspection SKIN: warm/dry, normal color EXTREMITIES: normal range of motion NEURO: oriented X3, CN's nml as tested, motor nml, sensation nml, mood/affect nml, cognition normal Discharge Clincal Impression: Dehydration, S/P gastric bypass, Hemorrhoids Referrals: Dallin Kapoor MD [Primary Care Provider] - 2 Days Additional Instructions: Use TUCKS pad May also use preparation H Try not to sit on the toilet for long periods of time; try not to strain Sip on fluids continuously throughout the day ([employer] Drinks and water) Keep bariatric follow up appointment tomorrow Condition: Good Disposition: 01 HOME, SELF-CARE Decision to Admit: NO Decision Time: 15:36
[2019-08-03] MEDS ORDERED: POTASSIUM CHLORIDE 20 MEQ/NS 1,000 ML IV SCH (12:35)
[2019-08-03] MEDS: POTASSIUM CHLORIDE IV ONE (12:39)
[2019-08-03] MEDS: SODIUM CHLORIDE IV ONE (12:39)
[2019-08-03 13:21] LABS: BASOPHILS % 0.4 % (0.0-1.5); NEUTROPHILS # 5.6 # k/uL (1.4-7.7)
[2019-08-03 13:22] LABS: SEGMENTED NEUTROPHILS % 63 % (39-79)
[2019-08-03 13:23] LABS: eGFR (Non-African) > 60
[2019-08-03 15:13] VITALS: BP 123/66
== END 2019-08-03 15:12 | disposition home or self-care (01) ==
LOC: ED 11:43
DX: N99.820 Postprocedural hemorrhage of a genitourinary system organ or structure following a genitourinary system procedure (principal); E86.0 Dehydration; Z98.84 Bariatric surgery status
CPT/HCPCS: 36415; 80053; 85025; 96360; 96361; 99282; 99283; J3480; S1016

== ENCOUNTER 2019-08-08 15:24 | Emergency (ER) | payer OTHER ==
[2019-08-08 16:15] LABS: BASOPHILS % 0.8 % (0.0-1.5); NEUTROPHILS # 4.7 # k/uL (1.4-7.7)
[2019-08-08] MEDS: ONDANSETRON HCL/PF 4 MG/ 2ML VIAL IVP ONE (16:15)
[2019-08-08 16:25] LABS: eGFR (Non-African) > 60
[2019-08-08] MEDS: 0.9 % SODIUM CHLORIDE 1,000 ML IV STA (17:00)
[2019-08-08] MEDS: ONDANSETRON HCL/PF 4 MG/ 2ML VIAL ONE (17:06)
[2019-08-08] MEDS: 0.9 % SODIUM CHLORIDE 1,000 ML IV ONE (17:27)
[2019-08-08] MEDS: POTASS CHLOR 10 mEq/100mL IVPB 10 MEQ/100 ML ML IV ONE (17:30)
--- NOTE | 2019-08-08 18:08 | ED Physician Documentation ---
GI Bleed - HISTORIAN Historian: patient - HPI Stated Complaint: Abdominal pain Chief Complaint: Abdominal Pain Additional Information: gastric bypass 2 weeks ago now severe abd pain emesis dizziness watery stool emesis is yellow stool somewhat yellow has been here prev and to [facility] [place] ed-not happy w/care there. has not seen surgeon recently Timing: gradual onset, still present Severity: moderate - Associated Symptoms Description of Stools: denies: dark stools Abdominal Pain: cramping, burning, moderate Description of Rectal Bleed: denies: bleeding w/o stools Other Related Symptoms: nausea, vomiting - ROS CONST: recent illness, other (sig anxiety) SKIN/LYMPH: denies: leg swelling, rash, swollen glands CVS/RESP: shortness of breath (mild). denies: chest pain EYES/ENT: denies: problems with vision MS: none NEURO/PSYCH: headache, lost feeling, anxiety, depression - PAST HX Past History: other (diabetes htn cardiomegallly) Surgeries/Procedures: appendectomy, cholecystectomy, hysterectomy Allergies/Adverse Reactions: Allergies Allergy/AdvReac Type Severity Reaction Status Date / Time oxycodone [From OxyContin] Allergy Severe SWELLS UP Verified 08/08/19 16:04 codeine Allergy Verified 08/08/19 16:04 gabapentin Allergy Verified 08/08/19 16:04 hydrocodone Allergy Verified 08/08/19 16:04 morphine Allergy Verified 08/08/19 16:04 Home Medications: Ambulatory Orders Medication Instructions Recorded Albuterol Sulfate [Albuterol 8.5 gm IH BID #1 hfa.aer.ad 08/08/19 Sulfate Hfa] Cefdinir 300 mg PO BID #14 capsule 08/08/19 Clonidine HCl [Catapres] 1 tab PO BID 08/08/19 predniSONE [Deltasone] 20 mg PO BID #12 tablet 08/08/19 - SOCIAL HX Smoking History: non-smoker Alcohol Use: none Drug Use: none - FAMILY HX Family History: none - VITAL SIGNS Vital Signs: Vital Signs Temp Pulse Resp BP Pulse Ox 98.2 F 87 19 144/87 94 08/08/19 15:30 08/08/19 15:30 08/08/19 15:30 08/08/19 15:30 08/08/19 15:30 - REVIEWED ASSESSMENTS Nursing Assessment Reviewed: Yes Vitals Reviewed: Yes ED Results Lab/Radiology - Lab Results Lab Results: Lab Results 08/08/19 08/08/19 16:11 16:11 WBC 8.90 K/ul K/ul (4.00-12.00) RBC 4.84 M/ul M/ul (3.90-5.20) Hgb 14.8 g/dL g/dL (11.5-16.0) Hct 45.1 % % (34.5-46.5) MCV 93.0 fl fl (80.0-100.0) MCH 30.5 pg pg (28.0-34.0) MCHC 32.7 g/dL g/dL (30.0-36.0) RDW 11.5 % % (11.3-14.3) Plt Count 390 K/mm3 K/mm3 (130-400) Neut % (Auto) 53.2 % % (39.0-79.0) Lymph % (Auto) 30.5 % % (16.0-50.0) [place] % (Auto) 11.3 % H % (0.0-11.0) Eos % (Auto) 4.2 % % (0.0-6.8) Baso % (Auto) 0.8 % % (0.0-1.5) Neut # (Auto) 4.7 # k/uL # k/uL (1.4-7.7) Lymph # (Auto) 2.7 # k/uL # k/uL (0.6-4.0) [place]vert # (Auto) 1.0 # k/uL H # k/uL (0.0-0.9) Eos # (Auto) 0.4 # k/uL # k/uL (0.0-0.6) Baso # (Auto) 0.1 # k/uL # k/uL (0.0-0.5) Sodium 145 mmol/L mmol/L (137-145) Potassium 2.9 mmol/L L mmol/L (3.5-5.1) Chloride 108 mmol/L H mmol/L (98-107) Carbon Dioxide 23 mmol/L mmol/L (22-30) Anion Gap 16.9 BUN 16 mg/dL mg/dL (7-17) Creatinine 1.12 mg/dL H mg/dL (0.52-1.04) Estimated Creat Clear 103 Est GFR ( Amer) > 60 (60 - ) Est GFR (Non-Af Amer) > 60 (60 - ) Glucose 112 mg/dL H mg/dL (74-106) Calcium 10.2 mg/dL mg/dL (8.4-10.2) Total Bilirubin 0.6 mg/dL mg/dL (0.2-1.3) AST 40 U/L U/L (15-46) ALT 41 U/L H U/L (0-35) Alkaline Phosphatase 99 U/L U/L (38-126) Total Protein 8.4 g/dL H g/dL (6.3-8.2) Albumin 4.6 g/dL g/dL (3.5-5.0) - Orders Orders: ED Orders Category Date Time Status Place IV Lock 1T Care 08/08/19 16:08 Active CBC/PLATELET/DIFF Stat Lab 08/08/19 16:11 Completed CMP [CMP] Stat Lab 08/08/19 16:11 Completed 0.9 % Sodium Chloride [Normal Saline] 1,000 ml Med 08/08/19 17:17 Discontinued IV Q1H 0.9 % Sodium Chloride [Normal Saline] 1,000 ml Med 08/08/19 16:58 Discontinued IV STAT Ondansetron HCl/Pf [Zofran] Med 08/08/19 15:47 Discontinued 4 mg .ROUTE .STK-MED ONE Ondansetron HCl/Pf [Zofran] Med 08/08/19 16:08 Discontinued 4 mg IVP NOW ONE POTASS CHLOR 10 mEq/100mL IVPB [KCL 10 mEq/100 mL IVPB] Med 08/08/19 17:18 Discontinued 20 meq IV NOW ONE Abdominal Pain Physical Exam - Physical Exam General Appearance: moderate distress EENT: eye inspection normal NECK: normal inspection, thyroid normal, supple RESPIRATORY: no resp distress, chest non-tender, breath sounds normal CVS: reg rate & rhythm, heart sounds normal ABDOMEN: soft, tenderness (genl vitor epigastric area surg scars healing ok) BACK: normal inspection, no CVA tenderness SKIN: warm/dry, normal color. No: cyanosis, diaphoresis, jaundice, mottled EXTREMITIES: non-tender, normal range of motion NEURO: oriented X3, motor nml, sensation nml Vital Signs: Vital Signs Temp Pulse Resp BP Pulse Ox 98.2 F 87 19 144/87 94 08/08/19 15:30 08/08/19 15:30 08/08/19 15:30 08/08/19 15:30 08/08/19 15:30 Discharge Clincal Impression: acute pneumonia Prescriptions: Cefdinir 300 mg PO BID #14 capsule predniSONE [Deltasone] 20 mg PO BID #12 tablet Referrals: Dallin Kapoor MD [Primary Care Provider] - 2 Days Comments: home rest no work f/u w/pcp 1-2 days or rt ed sy worsen Condition: Good Disposition: 01 HOME, SELF-CARE Decision to Admit: NO Decision Time: 19:27
[2019-08-09 00:15] VITALS: BP 118/64
== END 2019-08-08 20:15 | disposition home or self-care (01) ==
LOC: ED 15:24
DX: J18.9 Pneumonia, unspecified organism (principal)
CPT/HCPCS: 80053; 85025; 96361; 96374; 96375; 99284; J2405; J7030; S1016